=== PATIENT | male | born 1975 | race Caucasian/White ===

== ENCOUNTER 2018-06-18 11:53 | Outpatient (CLI) | payer OTHER, MEDICARE ==
--- NOTE | 2018-06-18 16:49 | MRI ---
[facility] Brain W WO Con: MRI pituitary gland with and without contrast: 06/18/2018 12:00 AM CLINICAL HISTORY: Abnormal prolactin level. COMPARISON: : FINDINGS: Extra axial spaces: Normal in size and morphology for the patient's age. Hemorrhage: None. Ventricular system: Normal in size and morphology for the patient's age. Basal cisterns: Normal. Cerebral parenchyma: Normal. Midline shift: None. Cerebellum: Normal. Brainstem: Normal. Paranasal sinuses:Clear No pathologic intra-axial enhancement. No discrete pituitary lesion. IMPRESSION: No acute intracranial abnormality. No pituitary lesion is evident.
== END 2018-06-18 11:54 | disposition home or self-care (01) ==
LOC: CT 11:53 → SCSMRI 11:54
PROVIDERS: ATTEND Urology
DX: E22.9 Hyperfunction of pituitary gland, unspecified (principal); E29.1 Testicular hypofunction
CPT/HCPCS: 70553